=== PATIENT | female | born 1965 | race Caucasian/White ===

== ENCOUNTER 2019-04-03 23:23 | Emergency (ER) | payer OTHER ==
[~2019-04-03] VITALS: Ht 167.6 cm; Wt 86.2 kg
[2019-04-03 23:31] VITALS: BP_SYST 163
--- NOTE | 2019-04-03 23:37 | NUR ---
Patient triaged and placed in waiting room. VSS and patient appears in no acute distress at this time. Accompanied by family, awaiting available bed, and MD notified of need for MSE.
--- NOTE | 2019-04-04 00:06 | NUR ---
Patient to ER bed 8 to gown for evaluation. Side rails up.
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
--- NOTE | 2019-04-04 02:05 | NUR ---
ER Dr. Petersen at bedside examining patient.
[2019-04-04] MEDS ORDERED: IBUPROFEN 800 MG TABLET ONE (02:31)
[2019-04-04 03:44] LABS: BASOPHILS % (AUTO) 0.6 % (0.0-2.0); EOSINOPHILS # (AUTO) 0.1 K/uL (0.0-0.4); EOSINOPHILS % (AUTO) 1.5 % (0.0-4.0); HEMATOCRIT 38.3 % (36-48); HEMOGLOBIN 12.8 g/dL (12.0-16.0); LYMPHOCYTES # (AUTO) 2.3 K/uL (1.0-5.5); LYMPHOCYTES % (AUTO) 38.3 % (20.5-51.5); MEAN CORPUSCULAR HEMOGLOBIN 32 pg (27-31); MEAN CORPUSCULAR HGB CONC 34 % (32-36); MEAN CORPUSCULAR VOLUME 96 fL (79.0-98.0); MONOCYTES # (AUTO) 0.4 K/uL (0.0-1.0); MONOCYTES % (AUTO) 7.4 % (1.7-9.3); NEUTROPHILS # (AUTO) 3.1 K/uL (1.8-7.7); NEUTROPHILS % (AUTO) 52.2 % (40.0-70.0); PLATELET COUNT (AUTO) 205 K/uL (130-430); RED BLOOD CELL COUNT(AUTO) 3.98 MIL/uL (4.2-6.2); RED CELL DISTRIBUTION WIDTH 13.4 % (9.0-15.0); WHITE BLOOD COUNT (AUTO) 5.9 K/uL (4.8-10.8)
[2019-04-04] MEDS ORDERED: ONDANSETRON 4 MG ODT TAB PO ONE (03:45)
[2019-04-04] MEDS ORDERED: ONDANSETRON 4 MG ODT TAB ONE (03:53)
[2019-04-04 03:55] LABS: CALCIUM 9.1 mg/dL (8.4-11.0); CREATININE 0.75 mg/dL (0.55-1.30); POTASSIUM 3.5 mmol/L (3.5-5.1)
[2019-04-04] MEDS ORDERED: LORazepam 1 MG TABLET PO ONE (04:00)
[2019-04-04 04:02] LABS: ALBUMIN 3.6 g/dL (3.4-4.8); TOTAL BILIRUBIN 0.3 mg/dL (0.0-1.0)
--- NOTE | 2019-04-04 04:35 | NUR ---
ER Dr. Petersen at bedside explaining results to patient.
[2019-04-04] MEDS ORDERED: fentaNYL CITRATE/PF 100 MCG/2 ML AMP IM ONE (04:45)
--- NOTE | 2019-04-04 05:50 | NUR ---
Pt resting in ED bed comfortably.
[2019-04-04] MEDS ORDERED: IBUPROFEN 800 MG TABLET PO ONE (06:00)
[2019-04-04 06:10] VITALS: BP_SYST 155
--- NOTE | 2019-04-04 06:10 | NUR ---
Patient given written and verbal discharge instructions and verbalizes understanding. ER MD discussed with patient the results and treatment provided. Patient in stable condition. ID arm band removed. No IV Rx of Flexeril, Motrin given. Patient educated on pain management and to follow up with PMD. Pain Scale 0/10. Opportunity for questions provided and answered. Medication side effect fact sheet provided.
== END 2019-04-04 06:10 | disposition home or self-care (01) ==
LOC: SED 23:23
DX: S13.4XXA Sprain of ligaments of cervical spine, initial encounter (principal); S23.3XXA Sprain of ligaments of thoracic spine, initial encounter; M25.512 Pain in left shoulder; V49.40XA Driver injured in collision with unspecified motor vehicles in traffic accident, initial encounter; Y93.89 Activity, other specified; Y92.411 Interstate highway as the place of occurrence of the external cause; Y99.8 Other external cause status
CPT/HCPCS: 36415; 70450; 72125; 72128; 72131; 73030; 80053; 85025; 96372; 99284; J3010; Q0162